=== PATIENT | female | born 2000 | race Caucasian/White ===

== ENCOUNTER 2021-01-13 19:36 | Emergency (ER) | payer OTHER ==
[2021-01-13 20:09] VITALS: BMI 21.9
[2021-01-13 21:19] LABS: EPI CELLS 6 /uL (0-25.1); HYALINE CASTS 1 /uL (0-3.1); PH,URINE 5.5 (5.0-8.0); URINE APPEARANCE CLEAR; URINE BACTERIA 345 /uL (0-1359); URINE BILIRUBIN NEGATIVE (NEGATIVE); URINE COLOR YELLOW; URINE GLUCOSE (UA) NEGATIVE (NEGATIVE); URINE KETONE TRACE (NEGATIVE); URINE LEUK ESTERASE NEGATIVE (NEGATIVE); URINE NITRITE NEGATIVE (NEGATIVE); URINE PROTEIN NEGATIVE (NEGATIVE); URINE RBC 14 /uL (0-23.9); URINE UROBILINOGEN 0.2 mg/dL (0.2-1.0); URINE WBC 2 /uL (0-25.8)
[2021-01-13 23:31] VITALS: BP 110/76; PULSE 73; TEMP 98.3
== END 2021-01-13 23:32 | disposition home or self-care (01) ==
LOC: JER 19:36
DX: O20.0 Threatened abortion (principal)
CPT/HCPCS: 36415; 76801-TC; 81003; 84702; 86850; 86900; 86901; 87086; 99284-25

== ENCOUNTER 2021-02-22 21:08 | Emergency (ER) | payer OTHER ==
[2021-02-22 21:14] VITALS: BMI 22.6
[2021-02-22 22:10] LABS: EOS % 3.1 % (0-4.5); HEMATOCRIT 34.8 % (32.4-45.2); HEMOGLOBIN 11.8 GM/dL (10.7-15.3); LYMPH % 36.7 % (8-40); MCH 29.5 pg (25.7-33.7); MCHC 33.9 g/dl (32.0-36.0); MEAN CELL VOLUME 87.1 fl (80-96); MEAN PLT VOLUME 8.4 fl (7.5-11.1); MONO % 8.6 % (3.8-10.2); NEUT % 50.6 % (42.8-82.8); PLATELET COUNT 250 10^3/uL (134-434); RBC 3.99 M/mm3 (3.60-5.2); RDW 13.9 % (11.6-15.6); WHITE BLOOD COUNT 5.8 K/mm3 (4.0-10.0)
[2021-02-22 22:17] LABS: INR 1.08 (0.83-1.09); PROTHROMBIN TIME (PATIENT) 13.2 SEC (9.7-13.0)
[2021-02-22 22:28] LABS: EPI CELLS 2 /uL (0-25.1); HCG,QUALITATIVE URINE Negative; HYALINE CASTS 0 /uL (0-3.1); PH,URINE 5.5 (5.0-8.0); URINE APPEARANCE CLEAR; URINE BACTERIA 50 /uL (0-1359); URINE BILIRUBIN NEGATIVE (NEGATIVE); URINE COLOR YELLOW; URINE GLUCOSE (UA) NEGATIVE (NEGATIVE); URINE KETONE NEGATIVE (NEGATIVE); URINE LEUK ESTERASE NEGATIVE (NEGATIVE); URINE NITRITE NEGATIVE (NEGATIVE); URINE PROTEIN NEGATIVE (NEGATIVE); URINE RBC 1964 /uL (0-23.9); URINE WBC 7 /uL (0-25.8)
[2021-02-22 22:35] LABS: ALBUMIN 3.9 g/dl (3.4-5.0); BLOOD UREA NITROGEN 13.6 mg/dL (7-18)
[2021-02-22 22:38] LABS: CREATININE 0.7 mg/dL (0.55-1.3)
[2021-02-22 22:40] LABS: BILIRUBIN,TOTAL 0.6 mg/dL (0.2-1); TOT PROT 7.4 g/dl (6.4-8.2)
[2021-02-22 23:06] VITALS: BP 110/67; PULSE 86; TEMP 98.6
== END 2021-02-22 23:06 | disposition home or self-care (01) ==
LOC: JER 21:08
DX: N93.9 Abnormal uterine and vaginal bleeding, unspecified (principal)
CPT/HCPCS: 36415; 76830-TC; 80053; 81003; 84702; 84703; 85025; 85610; 86850; 86900; 86901; 99284-25

== ENCOUNTER 2021-11-05 09:17 | Day surgery (SDC) | payer OTHER ==
[2021-11-02 11:22] VITALS: BMI 22.6
[2021-11-05] MEDS ORDERED: oxyCODONE HCL 5 MG TABLET PO PRN (10:05)
[2021-11-05] MEDS ORDERED: ONDANSETRON 4 MG/2 ML VIAL IVPUSH PRN (10:05)
[2021-11-05] MEDS ORDERED: LACTATED RINGERS SOLUTION 1,000 ML IV SCH (10:15)
[2021-11-05] MEDS ORDERED: BUPIVACAINE HCL 100 ML ONE (10:20)
[2021-11-05] MEDS ORDERED: BUPIVACAINE LIPOSOME/PF (EXPAREL) 266 MG/20 ML VIAL ONE (10:22)
[2021-11-05] MEDS ORDERED: MIDAZOLAM HCL 2 MG/2 ML SINGLE DOSE VIAL ONE (10:22)
[2021-11-05] MEDS ORDERED: PROPOFOL 20 ML ONE (10:42)
[2021-11-05] MEDS ORDERED: TRANEXAMIC ACID 1000 MG/10 ML VIAL ONE (11:16)
[2021-11-05] MEDS ORDERED: HYDROmorphone HCL/PF 1 MG/ML VIAL ONE (11:27)
[2021-11-05] MEDS ORDERED: DEXAMETHASONE SOD PHOSPHATE 4 MG/1 ML VIAL ONE (12:18)
[2021-11-05] MEDS ORDERED: ONDANSETRON 4 MG/2 ML VIAL ONE (13:27)
[2021-11-05 14:23] VITALS: TEMP 97.6
[2021-11-05 14:34] VITALS: BP 122/63; PULSE 89
== END 2021-11-05 15:15 | disposition home or self-care (01) ==
LOC: FASU 09:17
PROVIDERS: ATTEND Orthopaedic Surgery Sports Medicine
PROC: 0SBD4ZZ Excision of Left Knee Joint, Percutaneous Endoscopic Approach (ICD-10-PCS; 2021-11-05)
PROC: 0MRP47Z Replacement of Left Knee Bursa and Ligament with Autologous Tissue Substitute, Percutaneous Endoscopic Approach (ICD-10-PCS; principal; 2021-11-05 11:18)
DX: S83.512A Sprain of anterior cruciate ligament of left knee, initial encounter (principal); S82.112A Displaced fracture of left tibial spine, initial encounter for closed fracture; X58.XXXA Exposure to other specified factors, initial encounter; Y93.9 Activity, unspecified; Y92.9 Unspecified place or not applicable
CPT/HCPCS: 29888; C1713; 84703; 94760; 97116-GP

== ENCOUNTER 2022-04-13 02:37 | Emergency (ER) | payer OTHER ==
[2022-04-13] MEDS ORDERED: DIPHTH,PERTUSS(ACELL),TET 0.5 ML DISP.SYRIN IM ONE ×2 (02:47→04:01)
[2022-04-13] MEDS ORDERED: ACETAMINOPHEN 325 MG TABLET (FP) PO ONE (02:47)
[2022-04-13 03:16] VITALS: BP 133/99; PULSE 76; RESP 18; TEMP 98.1; BMI 18.8
[2022-04-13] MEDS ORDERED: ACETAMINOPHEN 325 MG TABLET (FP) ONE (03:22)
== END 2022-04-13 05:35 | disposition home or self-care (01) ==
LOC: JER 02:37
PROC: 3E0234Z Introduction of Serum, Toxoid and Vaccine into Muscle, Percutaneous Approach (ICD-10-PCS; principal; 2022-04-13)
DX: S01.01XA Laceration without foreign body of scalp, initial encounter (principal); S50.01XA Contusion of right elbow, initial encounter; W22.8XXA Striking against or struck by other objects, initial encounter; Y07.03 Male partner, perpetrator of maltreatment and neglect
CPT/HCPCS: 70450-TC; 72125-TC; 73070-TC-RT-FY; 73562-TC-LT-FY; 90471; 90715; 99285-25